=== PATIENT | female | born 1980 | race Caucasian/White ===

== ENCOUNTER → 2019-11-22 | Outpatient (CLI) | payer OTHER ==
--- NOTE | 2019-11-22 14:33 | CARD ---
MR#: [id number] Date of Study: 11/22/2019 Ordering Physician: JAYDE SWENSON, Referring Physician: JAYDE SWENSON, Tech: Keara Wharton TYLER APPROVED REPORT EXAM: Two-dimensional and M-mode echocardiogram with Doppler and color Doppler. Other Information Quality : Good INDICATION Syncope 2D DIMENSIONS RVDd3.2 (2.9-3.5cm)Left Atrium(2D)3.5 (1.6-4.0cm) IVSd0.7 (0.7-1.1cm)Aortic Root(2D)2.6 (2.0-3.7cm) LVDd4.2 (3.9-5.9cm)LVOT Diameter2.0 (1.8-2.4cm) PWd0.8 (0.7-1.1cm)LVDs3.1 (2.5-4.0cm) FS (%) 27.4 %SV42.5 ml LVEF(%)55.0 (>50%) Aortic Valve AoV Peak Omid.132.0cm/sAoV VTI26.0cm AO Peak GR.7.0mmHgLVOT Peak Omid.117.1cm/s LVOT VTI 26.90cmAO Mean GR.4mmHg KEVIN (VMAX)2.31fm9DEL (VTI)3.12cm2 Mitral Valve MV E Lyiaiofg67.0cm/sMV DECEL IVPT436oa MV A Myoanziy08.2cm/sMV QVL84sd E/A Ratio1.3MVA (PHT)3.64cm2 TDI E/Lateral E'5.5E/Medial E'10.7 Tricuspid Valve TR P. Nsdmjaos210xk/sRAP RLPGILYW3geOt TR Peak Gr.12xzKaQNXH70thCn Pulmonary Vein S1 Piywhamv10.5cm/sD2 Gwvzetdk35.2cm/s LEFT VENTRICLE The left ventricle is normal size. There is normal left ventricular wall thickness. The left ventricu lar systolic function is normal and the ejection fraction is within normal range. The Ejection Fracti on is 55-60%. There is normal LV segmental wall motion. The left ventricular diastolic function and f illing is normal for age. RIGHT VENTRICLE The right ventricle is normal size. The right ventricular systolic function is normal. ATRIA The left atrium size is normal. The right atrium size is normal. The interatrial septum is intact wit h no evidence for an atrial septal defect or patent foramen ovale as noted on 2-D or Doppler imaging. AORTIC VALVE The aortic valve is normal in structure and function. Doppler and Color Flow revealed no significant aortic regurgitation. There is no significant aortic valvular stenosis. MITRAL VALVE The mitral valve is normal in structure and function. There is no evidence of mitral valve prolapse. There is no mitral valve stenosis. Doppler and Color-flow revealed trace to mild mitral regurgitation . TRICUSPID VALVE The tricuspid valve is normal in structure and function. Doppler and Color Flow revealed trace tricus pid regurgitation. The PA pressure was estimated at 22 mmHg. There is no tricuspid valve stenosis. PULMONIC VALVE The pulmonary valve is normal in structure and function. Doppler and Color Flow revealed no pulmonic valvular regurgitation. There is no pulmonic valvular stenosis. GREAT VESSELS The aortic root is normal in size. The ascending aorta is normal in size. The IVC is normal in size a nd collapses >50% with inspiration. PERICARDIAL EFFUSION There is no evidence of significant pericardial effusion. Critical Notification Critical Value: No <Conclusion> The left ventricular systolic function is normal and the ejection fraction is within normal range. Th e Ejection Fraction is 55-60%. There is normal LV segmental wall motion. Signed by : Percy Wilson, Electronically Approved : 11/22/2019 14:32:56
== END | disposition home or self-care (01) ==
LOC: ECHO 13:36
PROVIDERS: ATTEND Internal Medicine Cardiovascular Disease
DX: I34.0 Nonrheumatic mitral (valve) insufficiency (principal); R55 Syncope and collapse
CPT/HCPCS: 93306